=== PATIENT | male | born 1955 | race Caucasian/White ===

== ENCOUNTER 2018-12-30 14:07 | Emergency (ER) | payer MEDICARE, MEDICAID ==
[2018-12-30] MEDS ORDERED: Morphine 10 MG/ML VIAL ONE (15:00)
== END 2018-12-30 16:08 | disposition home or self-care (01) ==
LOC: MADERS 14:07
DX: S60.452A Superficial foreign body of right middle finger, initial encounter (principal); L03.011 Cellulitis of right finger; K21.9 Gastro-esophageal reflux disease without esophagitis; Z79.899 Other long term (current) drug therapy; F17.210 Nicotine dependence, cigarettes, uncomplicated; W45.8XXA Other foreign body or object entering through skin, initial encounter
CPT/HCPCS: 96372; 99283; J2270

== ENCOUNTER 2020-02-16 21:09 | Emergency (ER) | payer MEDICARE, MEDICAID ==
[2020-02-16 22:12] LABS: #Basophils 0.1 thou/uL (0.0-0.2); #Eosinphils 0.4 thou/uL (0.0-0.7); #Lymphocytes 3.2 thou/uL (1.20-3.40); #Neutrophils 4.1 thou/uL (1.40-6.50); %Basophils 0.8 % (0.0-1.0); %Eosinophils 4.2 % (0.0-10.0); %Lymphocytes 36.6 % (21.0-51.0); %Monocytes 11.3 % (0.0-10.0); %Neutrophils 47.1 % (42.0-75.0); Hemoglobin 13.4 g/dL (14.0-18.0); Mean Corpuscular HGB CONC 31.2 g/dL (32.0-36.0); Mean Corpuscular Volume 96.3 fL (78.0-98.0); Mean Platelet Volume 7.3 fL (7.4-10.4); Platelet Count 332 thou/uL (130-400); RBC Distribution Width 12.3 % (11.5-14.5); Red Blood Cell (RBC) Count 4.45 mill/uL (4.70-6.10); White Blood Cell (WBC) Count 8.8 thou/uL (4.8-10.8)
[2020-02-16 22:23] LABS: ALT (SGPT) 20 U/L (8-55); AST (SGOT) 17 U/L (5-34); Albumin 3.8 g/dL (3.4-4.8); Alkaline Phosphatase 94 U/L (40-110); Anion Gap 12 mmol/L (10-20); BUN (Urea Nitrogen) 9 mg/dL (8.4-25.7); Bilirubin, Total 0.3 mg/dL (0.2-1.2); Calc. Creatinine Clearance 0 mL/min (70-130); Calcium 8.9 mg/dL (7.8-10.44); Carbon Dioxide 26 mmol/L (23-31); Chloride 109 mmol/L (98-107); Estimated GFR-MDRD 64; Globulin 2.7 g/dL (2.4-3.5); Glucose 72 mg/dL (80-115); Potassium 4.7 mmol/L (3.5-5.1); Protein, Total 6.5 g/dL (5.8-8.1); Sodium 142 mmol/L (136-145)
[2020-02-16] MEDS ORDERED: Enoxaparin Sodium 60 MG/0.6 ML SYRINGE ONE (22:36)
[2020-02-16] MEDS ORDERED: Aspirin Chewable 81 MG TAB ONE (22:36)
--- NOTE | 2020-02-16 22:43 | RAD ---
EXAM: Single view of the chest HISTORY: Chest pain COMPARISON: CT chest 05/09/2019 FINDINGS: Single view of the chest shows a normal sized cardiomediastinal silhouette. A calcified gr anuloma projects over the right upper lobe. There is no evidence of consolidation or pleural effusion. Sclerosis is seen surrounding a healing right posterior rib fracture. There is been resecti on of the distal aspect of the right clavicle. IMPRESSION: No evidence of acute cardiopulmonary disease
[2020-02-16 23:16] LABS: CKMB 2.7 ng/mL (0-6.6)
== END 2020-02-16 23:23 | disposition short-term general hospital (02) ==
LOC: MADERS 21:09
DX: I20.9 Angina pectoris, unspecified (principal); I21.4 Non-ST elevation (NSTEMI) myocardial infarction; R94.31 Abnormal electrocardiogram [ECG] [EKG]; K21.9 Gastro-esophageal reflux disease without esophagitis; F17.210 Nicotine dependence, cigarettes, uncomplicated; Z79.899 Other long term (current) drug therapy
CPT/HCPCS: 71045; 82553; 83880; 93005; 96372; J1650

== ENCOUNTER 2023-05-04 13:36 | Emergency (ER) | payer OTHER, MEDICAID ==
[2023-05-04 14:40] LABS: #Basophils 0.1 thou/uL (0.0-0.2); #Eosinphils 0.3 thou/uL (0.0-0.7); #Lymphocytes 2.2 thou/uL (1.20-3.40); #Monocytes 0.7 thou/uL (0.11-0.59); #Neutrophils 8.2 thou/uL (1.40-6.50); %Basophils 1.2 % (0.0-1.0); %Eosinophils 2.3 % (0.0-10.0); %Lymphocytes 19.3 % (21.0-51.0); %Monocytes 6.4 % (0.0-10.0); %Neutrophils 70.9 % (42.0-75.0); Hematocrit 31.6 % (42.0-52.0); Hemoglobin 9.8 g/dL (14.0-18.0); Mean Corpuscular Hemoglobin 27.7 pg (27.0-31.0); Mean Corpuscular Volume 89.4 fl (78.0-98.0); Mean Platelet Volume 6.2 fL (7.4-10.4); Platelet Count 378 10x3/uL (130-400); RBC Distribution Width 14.5 % (11.5-14.5); Red Blood Cell (RBC) Count 3.54 mill/uL (4.70-6.10); White Blood Cell (WBC) Count 11.5 10x3/uL (4.8-10.8)
[2023-05-04 14:53] LABS: AST (SGOT) 20 U/L (5-34); Albumin 3.1 g/dL (3.4-4.8); Alkaline Phosphatase 82 U/L (40-110); Anion Gap 14 mmol/L (10-20); BUN (Urea Nitrogen) 10 mg/dL (8.4-25.7); Bilirubin, Total 0.5 mg/dL (0.2-1.2); Calc. Creatinine Clearance 0 mL/min (70-130); Calcium 8.7 mg/dL (7.8-10.44); Carbon Dioxide 24 mmol/L (23-31); Chloride 102 mmol/L (98-107); Estimated GFR 95; Globulin 3.2 g/dL (2.4-3.5); Glucose 100 mg/dL (80-115); Potassium 3.9 mmol/L (3.5-5.1); Protein, Total 6.3 g/dL (5.8-8.1); Sodium 136 mmol/L (136-145)
[2023-05-04 14:54] LABS: ALT (SGPT) 18 U/L (8-55)
== END 2023-05-04 16:30 | disposition home or self-care (01) ==
LOC: MADERS 13:36
DX: S31.501D Unspecified open wound of unspecified external genital organs, male, subsequent encounter (principal); T79.2XXA Traumatic secondary and recurrent hemorrhage and seroma, initial encounter; F17.210 Nicotine dependence, cigarettes, uncomplicated; X58.XXXD Exposure to other specified factors, subsequent encounter
CPT/HCPCS: 80053; 85025; 87070; 87077; 87186; 87205; 99283

== ENCOUNTER 2024-03-15 10:58 | Emergency (ER) | payer MEDICAID, OTHER ==
[2024-03-15] MEDS ORDERED: Aspirin Chewable 81 MG TAB ONE (12:04)
[2024-03-15 12:06] LABS: Hematocrit 33.5 % (42.0-52.0); Hemoglobin 10.1 g/dL (14.0-18.0); Mean Corpuscular HGB CONC 30.2 g/dL (32.0-36.0); Mean Platelet Volume 5.8 fL (7.4-10.4); Platelet Count 518 10x3/uL (130-400); RBC Distribution Width 14.6 % (11.5-14.5); Red Blood Cell (RBC) Count 3.89 mill/uL (4.70-6.10); White Blood Cell (WBC) Count 15.3 10x3/uL (4.8-10.8)
[2024-03-15 12:11] LABS: Manual Diff?? YES
[2024-03-15 12:12] LABS: Anisocytosis SLIGHT = 6-15 cells (100X) (0-5/hpf); Band 2 % (5-11); Eosinophils 2 % (0-10); Lymphocytes 27 % (21-51); Monocytes 4 % (0-10); Platelet Adequacy Comment Appears Increased
[2024-03-15 12:19] LABS: ALT (SGPT) 13 U/L (8-55); AST (SGOT) 13 U/L (5-34); Albumin 2.4 g/dL (3.4-4.8); Alkaline Phosphatase 66 U/L (40-110); Anion Gap 11 mmol/L (10-20); BUN (Urea Nitrogen) 14 mg/dL (8.4-25.7); Bilirubin, Total 0.3 mg/dL (0.2-1.2); Calc. Creatinine Clearance 0 mL/min (70-130); Carbon Dioxide 28 mmol/L (23-31); Chloride 105 mmol/L (98-107); Estimated GFR 92; Globulin 4.2 g/dL (2.4-3.5); Glucose 88 mg/dL (80-115); Lipase 5 U/L (8-78); Potassium 4.3 mmol/L (3.5-5.1); Protein, Total 6.6 g/dL (5.8-8.1); Sodium 140 mmol/L (136-145)
[2024-03-15 12:25] LABS: Troponin I Less than 0.010 ng/mL (< 0.028)
== END 2024-03-15 14:00 | disposition short-term general hospital (02) ==
LOC: MADERS 10:58
DX: R07.9 Chest pain, unspecified (principal); R06.00 Dyspnea, unspecified; D64.9 Anemia, unspecified; S31.109D Unspecified open wound of abdominal wall, unspecified quadrant without penetration into peritoneal cavity, subsequent encounter; R79.1 Abnormal coagulation profile; D72.829 Elevated white blood cell count, unspecified; K21.9 Gastro-esophageal reflux disease without esophagitis; F17.210 Nicotine dependence, cigarettes, uncomplicated; Z79.82 Long term (current) use of aspirin; Z79.899 Other long term (current) drug therapy
CPT/HCPCS: 71045; 80053; 83690; 83880; 84484; 85025; 85379; 93005

== ENCOUNTER → 2024-03-20 | Emergency (ER) | payer OTHER, MEDICAID ==
[~2024-03-20] MED LIST: Aspirin Chewable 81 MG TAB ONE; HYDROcodone/Acetaminophen 10/325 mg Tablet ONE; Iopamidol 370 76% 100 ML VIAL ONE; Nitroglycerin 0.4 MG TAB 1 EACH ONE; Sodium Chloride 0.9% 100 ML BAG ONE
[2024-03-20 20:16] LABS: Band 3 % (5-11); Hematocrit 30.7 % (42.0-52.0); Hemoglobin 9.4 g/dL (14.0-18.0); Lymphocytes 20 % (21-51); MDiff Complete? YES; Mean Corpuscular HGB CONC 30.5 g/dL (32.0-36.0); Mean Corpuscular Hemoglobin 26.3 pg (27.0-31.0); Mean Corpuscular Volume 86.1 fl (78.0-98.0); Mean Platelet Volume 6.1 fL (7.4-10.4); Monocytes 6 % (0-10); Neutrophil 71 % (42-75); Platelet Count 555 10x3/uL (130-400); RBC Distribution Width 14.8 % (11.5-14.5); Red Blood Cell (RBC) Count 3.56 mill/uL (4.70-6.10); White Blood Cell (WBC) Count 14.4 10x3/uL (4.8-10.8)
[2024-03-20 20:21] LABS: ALT (SGPT) 11 U/L (8-55); AST (SGOT) 12 U/L (5-34); Albumin 2.3 g/dL (3.4-4.8); Alkaline Phosphatase 67 U/L (40-110); Anion Gap 14 mmol/L (10-20); BUN (Urea Nitrogen) 23 mg/dL (8.4-25.7); Bilirubin, Total 0.3 mg/dL (0.2-1.2); Calc. Creatinine Clearance 0 mL/min (70-130); Calcium 8.4 mg/dL (7.8-10.44); Carbon Dioxide 27 mmol/L (23-31); Chloride 103 mmol/L (98-107); Estimated GFR 91; Globulin 3.9 g/dL (2.4-3.5); Glucose 104 mg/dL (80-115); Lipase 5 U/L (8-78); Protein, Total 6.2 g/dL (5.8-8.1); Sodium 140 mmol/L (136-145); Troponin I Less than 0.010 ng/mL (< 0.028)
[2024-03-20 20:22] LABS: Magnesium 2.3 mg/dL (1.6-2.6)
[2024-03-20 23:48] LABS: Troponin I Less than 0.010 ng/mL (< 0.028)
[2024-03-21 02:50] LABS: Troponin I Less than 0.010 ng/mL (< 0.028)
== END ==
LOC: MADERS 19:18
DX: R55 Syncope and collapse (principal); R07.81 Pleurodynia; R27.0 Ataxia, unspecified; E78.00 Pure hypercholesterolemia, unspecified; K21.9 Gastro-esophageal reflux disease without esophagitis; Z87.891 Personal history of nicotine dependence; Z79.899 Other long term (current) drug therapy; Z79.82 Long term (current) use of aspirin
CPT/HCPCS: 70450; 71045; 71275; 74174; 83690; 83735; 84484 ×2; 85379; 93005; 94760; Q9967; 36415; 80053; 84443; 85025

== ENCOUNTER 2024-06-12 15:16 | Emergency (ER) | payer OTHER, MEDICAID ==
[~2024-06-12 15:16] MED LIST changes: -Aspirin Chewable 81 MG TAB ONE; -HYDROcodone/Acetaminophen 10/325 mg Tablet ONE; -Nitroglycerin 0.4 MG TAB 1 EACH ONE; -Sodium Chloride 0.9% 100 ML BAG ONE
[2024-06-12 16:29] LABS: Hematocrit 30.7 % (42.0-52.0); Hemoglobin 9.3 g/dL (14.0-18.0); Mean Corpuscular HGB CONC 30.3 g/dL (32.0-36.0); Mean Corpuscular Hemoglobin 26.1 pg (27.0-31.0); Mean Corpuscular Volume 86.2 fl (78.0-98.0); Mean Platelet Volume 5.7 fL (7.4-10.4); Platelet Count 682 10x3/uL (130-400); RBC Distribution Width 13.6 % (11.5-14.5); Red Blood Cell (RBC) Count 3.57 mill/uL (4.70-6.10); White Blood Cell (WBC) Count 20.1 10x3/uL (4.8-10.8)
[2024-06-12 16:31] LABS: PTT 37.4 sec (22.9-36.1); Prothrombin Time 13.3 sec (12.0-14.7)
[2024-06-12 16:36] LABS: ALT (SGPT) 21 U/L (8-55); AST (SGOT) 23 U/L (5-34); Albumin 2.1 g/dL (3.4-4.8); Alkaline Phosphatase 96 U/L (40-110); Anion Gap 13 mmol/L (10-20); BUN (Urea Nitrogen) 7 mg/dL (8.4-25.7); Bilirubin, Total 0.3 mg/dL (0.2-1.2); Calc. Creatinine Clearance 0 mL/min (70-130); Calcium 7.9 mg/dL (7.8-10.44); Carbon Dioxide 25 mmol/L (23-31); Chloride 105 mmol/L (98-107); Estimated GFR 100; Globulin 4.1 g/dL (2.4-3.5); Glucose 93 mg/dL (80-115); Potassium 3.5 mmol/L (3.5-5.1); Protein, Total 6.2 g/dL (5.8-8.1); Sodium 139 mmol/L (136-145)
[2024-06-12 16:51] LABS: Band 1 % (5-11); Eosinophils 2 % (0-10); Hypochromia SLIGHT = 6-15 cells (100X) (0-5/hpf); Large Platelets Few (None Seen); Lymphocytes 13 % (21-51); MDiff Complete? YES; Monocytes 2 % (0-10); Neutrophil 82 % (42-75); Platelet Adequacy Comment Appears Increased
[2024-06-12] MEDS ORDERED: Morphine 4 MG/ML VIAL ONE (17:08)
[2024-06-12] MEDS ORDERED: Lactated Ringer's 1,000 ML ONE (17:08)
[2024-06-12] MEDS ORDERED: Piperacillin/Tazobactam 4.5 GM VIAL ONE (17:08)
[2024-06-12] MEDS ORDERED: Sodium Chloride 0.9% 100 ML ONE (17:08)
[2024-06-12] MEDS ORDERED: Vancomycin HCl 500 MG VIAL ONE (17:51)
[2024-06-12] MEDS ORDERED: Vancomycin 1 GM VIAL ONE (17:51)
[2024-06-12] MEDS ORDERED: Sodium Chloride 0.9% 250 ML 250 ML ONE (17:51)
== END 2024-06-12 18:55 | disposition short-term general hospital (02) ==
LOC: MADERS 15:16
DX: S31.103A Unspecified open wound of abdominal wall, right lower quadrant without penetration into peritoneal cavity, initial encounter (principal); L02.211 Cutaneous abscess of abdominal wall; L03.032 Cellulitis of left toe; R65.10 Systemic inflammatory response syndrome (SIRS) of non-infectious origin without acute organ dysfunction; K21.9 Gastro-esophageal reflux disease without esophagitis; Z79.82 Long term (current) use of aspirin; Z79.899 Other long term (current) drug therapy; Z87.891 Personal history of nicotine dependence
CPT/HCPCS: 73630; 74177; 80053; 83605; 85025; 85610; 85730; 86140; 87040; 94760; J2272; J2543; J3370 ×2; J7050; J7120; Q9967; 96365; 96367; 96375